=== PATIENT | male | born 1990 | race Caucasian/White ===

== ENCOUNTER 2021-01-12 21:58 | Emergency (ER) | payer BC, OTHER ==
[~2021-01-12] VITALS: Ht 180.3 cm; Wt 116.8 kg
[2021-01-12] MEDS ORDERED: KETOROLAC 30 MG/ML VIAL IVP STA (22:23)
--- NOTE | 2021-01-12 22:29 | ED General ---
General Chief Complaint: General Problems/Pain Stated Complaint: RT SIDE PAIN Source of Information: Patient History of Present Illness Date Seen by Provider: Jan 12, 2021 Time Seen by Provider: 22:04 Initial Comments 30 yo male presenting with complaint of pain to right chest, right flank. This started 2 days ago and came on without any injury. He states he was just standing talking to a friend and had sudden onset of pain. The pain is worse with movement and deep breath. 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 He has been on Eliquis and has a Trego filter placed. He was worried with the pain persisting that he might have a blood clot to his lungs or kidney as they had warned them that he could have those clots from leg go to other organs. Timing/Duration: 1-2 Days Severity: Severe Modifying Factors: worse with Movement Associated Systoms: Chest Pain (pleuritic right sided); No Cough, No Diaphoresis, No Fever/Chills, No Headaches, No Loss of Appetite, No Malaise, No Nausea/Vomiting, No Seizure, No Shortness of Air, No Syncope, No Weakness Allergies and Home Medications Allergies Coded Allergies: No Known Drug Allergies (Unverified , 01/12/21) Patient Home Medication List Home Medication List Reviewed: Yes Oxycodone HCl/Acetaminophen (Oxycodone-Acetaminophen 5-325) 1 Each Tablet, 1 EACH PO Q6H PRN for PAIN-SEVERE (8-10) Prescribed by: HAYLEE JERONIMO on 01/12/21 3845 Review of Systems Review of Systems Constitutional: No chills, No fever EENTM: no symptoms reported Respiratory: see HPI; No cough, No short of breath Cardiovascular: see HPI Gastrointestinal: other (right flank pain) Genitourinary: No dysuria, No hematuria Musculoskeletal: back pain (right flank and back pain as well as posterior lower right chest tender to palpation) Skin: no symptoms reported Psychiatric/Neurological: Denies Numbness, Denies Paresthesia Hematologic/Lymphatic: Blood Clots (DVT in leg so on Eliquis and has Trego filter) Past Gmlmuzn-Oztzsi-Hxokeo Hx Past Medical History Surgeries: Yes Orthopedic Respiratory: No Cardiac: Yes Deep Vein Thrombosis Neurological: No Genitourinary: No Gastrointestinal: No Musculoskeletal: Yes Fractures HEENT: No Psychosocial: No Physical Exam Vital Signs Vital Signs - First Documented 01/12/21 22:10 Temp 36.6 Pulse 115 Resp 16 B/P (MAP) 144/108 (120) Pulse Ox 95 O2 Delivery Room Air Capillary Refill : Height, Weight, BMI Height: '" Weight: lbs. oz. kg; BMI Method: General Appearance: No Apparent Distress, WD/WN HEENT: PERRL/EOMI, Pharynx Normal Neck: Full Range of Motion, Non Tender, Supple Respiratory: Lungs Clear, Normal Breath Sounds, No Accessory Muscle Use, No Respiratory Distress; No Decreased Breath Sounds, No Rales, No Rhonci, No Stridor, No Wheezing; Other (tender to palpation of right lower posterior ribs/chest. no crepitus) Cardiovascular: Normal Peripheral Pulses, Tachycardia Gastrointestinal: Normal Bowel Sounds, No Pulsatile Mass, Non Tender, Soft Rectal: Deferred Back: CVA Tenderness (R), Other (pain to right CVA and flank) Extremity: Normal Capillary Refill Neurologic/Psychiatric: Alert, Oriented x3 Skin: Warm/Dry Progress/Results/Core Measures Suspected Sepsis SIRS Temperature: Pulse: Respiratory Rate: Laboratory Tests 01/12/21 22:39: White Blood Count 10.4 Blood Pressure / Mean: Laboratory Tests 01/12/21 22:39: Creatinine 0.65, INR Comment 1.0, Platelet Count 325, Total Bilirubin 0.3 Results/Orders Lab Results Laboratory Tests Test 01/12/21 22:25 01/12/21 22:39 Range/Units Urine Color STRAW Urine Clarity CLEAR Urine pH 6.0 5-9 Urine Specific [place] <=1.005 1.016-1.022 Urine Protein NEGATIVE NEGATIVE Urine Glucose (UA) NEGATIVE NEGATIVE Urine Ketones NEGATIVE NEGATIVE Urine Nitrite NEGATIVE NEGATIVE Urine Bilirubin NEGATIVE NEGATIVE Urine Urobilinogen 0.2 < = 1.0 MG/DL Urine Leukocyte Esterase NEGATIVE NEGATIVE Urine RBC (Auto) NEGATIVE NEGATIVE Urine RBC NONE /HPF Urine WBC NONE /HPF Urine Crystals NONE /LPF Urine Bacteria NEGATIVE /HPF Urine Casts NONE /LPF Urine Mucus NEGATIVE /LPF Urine Culture Indicated NO White Blood Count 10.4 4.3-11.0 10^3/uL Red Blood Count 5.10 4.30-5.52 10^6/uL Hemoglobin 15.4 13.3-17.7 g/dL Hematocrit 43 40-54 % Mean Corpuscular Volume 85 80-99 fL Mean Corpuscular Hemoglobin 30 25-34 pg Mean Corpuscular Hemoglobin Concent 36 32-36 g/dL Red Cell Distribution Width 12.3 10.0-14.5 % Platelet Count 325 130-400 10^3/uL Mean Platelet Volume 9.5 9.0-12.2 fL Immature Granulocyte % (Auto) 0 % Neutrophils (%) (Auto) 58 42-75 % Lymphocytes (%) (Auto) 31 12-44 % Monocytes (%) (Auto) 8 0-12 % Eosinophils (%) (Auto) 2 0-10 % Basophils (%) (Auto) 0 0-10 % Neutrophils # (Auto) 6.0 1.8-7.8 X 10^3 Lymphocytes # (Auto) 3.2 1.0-4.0 X 10^3 Monocytes # (Auto) 0.8 0.0-1.0 X 10^3 Eosinophils # (Auto) 0.2 0.0-0.3 10^3/uL Basophils # (Auto) 0.0 0.0-0.1 10^3/uL Immature Granulocyte # (Auto) 0.0 0.0-0.1 10^3/uL Prothrombin Time 13.2 12.2-14.7 SEC INR Comment 1.0 0.8-1.4 Activated Partial Thromboplast Time 27 24-35 SEC Sodium Level 139 135-145 MMOL/L Potassium Level 4.2 3.6-5.0 MMOL/L Chloride Level 104 98-107 MMOL/L Carbon Dioxide Level 23 21-32 MMOL/L Anion Gap 12 5-14 MMOL/L Blood Urea Nitrogen 11 7-18 MG/DL Creatinine 0.65 0.60-1.30 MG/DL Estimat Glomerular Filtration Rate 144 BUN/Creatinine Ratio 17 Glucose Level 110 H 70-105 MG/DL Calcium Level 9.7 8.5-10.1 MG/DL Corrected Calcium 8.5-10.1 MG/DL Magnesium Level 2.2 1.6-2.4 MG/DL Total Bilirubin 0.3 0.1-1.0 MG/DL Aspartate Amino Transf (AST/SGOT) 34 5-34 U/L Alanine Aminotransferase (ALT/SGPT) 30 0-55 U/L Alkaline Phosphatase 93 40-136 U/L Total Protein 8.0 6.4-8.2 GM/DL Albumin 4.6 H 3.2-4.5 GM/DL My Orders Orders - HAYLEE JERONIMO MD Cbc With Automated Diff (01/12/21:) Magnesium (01/12/21:) Comprehensive Metabolic Panel (01/12/21 22:21) Protime With Inr (01/12/21:) Partial Thromboplastin Time (01/12/21 22:) Ed Iv/Invasive Line Start (01/12/21:) Ua Culture If Indicated (01/12/21:) Ct Angio Chest/Abd/Pelv W (01/12/21 22:23) Ketorolac Injection (Toradol Injection) (01/12/21:23) Iohexol Injection (Omnipaque 350 Mg/Ml 1 (01/12/21 22:30) Received Contrast (Hold Metformin- Contr (01/12/21 22:30) Ns (Ivpb) (Sodium Chloride 0.9% Ivpb Bag (01/12/21 22:30) Rx-Oxycodone/Apap 5-325 Mg (Rx-Percocet (01/12/21 23:30) Medications Given in ED Current Medications Medications Dose Ordered Sig/Caro Route Start Time Stop Time Status Last Admin Dose Admin Iohexol 125 ml ONCE ONCE IV 01/12/21 22:30 01/12/21 22:31 DC 01/12/21 22:42 125 ML Sodium Chloride 100 ml ONCE ONCE IV 01/12/21 22:30 01/12/21 22:31 DC 01/12/21 22:42 100 ML Vital Signs/I&O 01/12/21 22:10 Temp 36.6 Pulse 115 Resp 16 B/P (MAP) 144/108 (120) Pulse Ox 95 O2 Delivery Room Air Capillary Refill : Progress Note #1: Progress Note Will check labs and CT angiogram of chest/abdomen/pelvis to evaluate for blood clots to lungs or organs. Doubtful this would be present with him taking Eliquis and having Trego filter but will check to see if might be present. Will also evaluate for aortic dissection, diverticulitis, kidney stone, colitis, rib fractures. Try a dose of Toradol for pain and inflammation. Progress Note #2: Progress Note Labs all stable without acute significant abnormality to account for his symptoms. UA clear of blood or infection. CT angiogram of chest/abdomen/pelvis read out as no acute arterial abnormality and no ischemic changes to organs. Filter in place in IVC. No acute pathology seen to account for his pain and symptoms. Can try continuation of muscle relaxer, steroid and a pain medicine. Have him recheck with pcp at his appt on Friday as scheduled. When reviewed with pt he stated he had plenty of muscle relaxer, did not want the steroid, reluctantly agreed to take some of the Percocet to help with pain until he sees clinic Friday Diagnostic Imaging Diagonstic Imaging: CT (angiogram) Plain Films/CT/US/NM/MRI: chest, abdomen, pelvis Comments NAME: ROYER GUERRA [facility] REC#: [id number] PT STATUS: REG ER : 1990 PHYSICIAN: HAYLEE JERONIMO MD ADMIT DATE: 01/12/21/ER FS Draft Date of Exam:01/12/21 CT ANGIO CHEST/ABD/PELV W PROCEDURE: CT angiography of the chest with contrast and CT abdomen and pelvis with contrast. TECHNIQUE: Multiple contiguous axial images were obtained through the chest, abdomen and pelvis after administration of intravenous contrast. 3D MIP reconstructed CT angiography acquisitions of the aorta were then performed. Auto Exposure Controls were utilized during the CT exam to meet ALARA standards for radiation dose reduction. INDICATION: Right-sided pain, history of thrombus. CHEST: Thoracic aorta patent and nonaneurysmal and nonacute. No mural hemorrhage, dissection or rupture. The pulmonary arterial branches widely patent. No filling defect. No PE. There is no pleural or pericardial effusion. There is no thoracic lymphadenopathy. No pulmonary consolidation or evidence for edema/pneumonia. No lung mass or lymphadenopathy. No chest wall lesion. Abdomen and pelvis: The aortoiliac vessels patent and nonaneurysmal and nonacute. No significant plaque, dissection, stenosis or occlusion. The celiac, the superior mesenteric and inferior mesenteric arteries as well as those vessels primary branches are all patent. No thrombus identified. The aortic bifurcation patent. Common, internal and external iliac segments as well as the common femorals and proximal superficial femorals appeared unremarkable. There were no findings of end organ ischemia. The renal arteries patent bilaterally. There is an IVC filter in place. There is fatty infiltration of the liver with no bile duct dilatation. The gallbladder normal. The pancreas negative. The spleen and adrenals unremarkable. There is no mesenteric or retroperitoneal adenopathy. The appendix normal. There is stool in the rectosigmoid colon without sharda impaction or obstruction. No perienteric or pericolonic edema. No segmental bowel wall thickening. No focal inflammatory changes. IMPRESSION: No acute arterial pathology within the chest, abdomen or pelvis. CHEST: Negative Abdomen and pelvis: Mild fatty liver, indwelling IVC filter. No thrombus, end-organ ischemia, obstructive phenomena or acute abnormalities. Dictated on workstation # [id number] Dict: 01/12/21 2304 Trans: 01/12/21 2312 [facility] [id number] Interpreted by: ROBERT MCELROY Electronically signed by: Reviewed: Reviewed by Me Departure Impression Primary Impression: Pleuritic chest pain Additional Impression: Right flank pain Disposition: HOME, SELF-CARE Condition: Stable Departure-Patient Inst. Decision time for Depature: 23:26 Referrals: AMIE FELIX APRN (PCP/Family) Primary Care Physician Patient Instructions: Flank Pain ED, Pleuritic Chest Pain ED Add. Discharge Instructions: No sign of infection or blood clots on your scans tonight of chest abdomen and pelvis. Try treating for muscle pain and spasm with continued muscle relaxer, alternate ice and heat to the area, and for severe pain the Oxycodone/Acetaminophen. Follow up with clinic on Friday as scheduled All discharge instructions reviewed with patient and/or family. Voiced understanding. Scripts Oxycodone HCl/Acetaminophen (Oxycodone-Acetaminophen 5-325) 1 Each Tablet 1 EACH PO Q6H PRN for PAIN-SEVERE (8-10) MDD 6 for 5 Days, #20 TAB 0 Refills Prov: HAYLEE JERONIMO MD 01/12/21 HAYLEE JERONIMO MD Jan 12, 2021 22:29
[2021-01-12] MEDS ORDERED: HOLD METFORMIN - RECEIVED CONTRAST 20 ML VIAL IV SCH (22:30)
[2021-01-12] MEDS ORDERED: NS 100 ML (IVPB) BAG IV ONE (22:30)
[2021-01-12] MEDS ORDERED: IOHEXOL 350 MG/ML 150 ML (OMNIPAQUE 350) VIAL IV ONE (22:30)
[2021-01-12 22:34] LABS: BACTERIA,URINE NEGATIVE /HPF; BILIRUBIN,URINE NEGATIVE (NEGATIVE); CLARITY,URINE CLEAR; COLOR,URINE STRAW; GLUCOSE, URINE (UA) NEGATIVE (NEGATIVE); KETONES,URINE NEGATIVE (NEGATIVE); LEUKOCYTE ESTERASE ,URINE NEGATIVE (NEGATIVE); NITRITE,URINE NEGATIVE (NEGATIVE); PROTEIN,URINE NEGATIVE (NEGATIVE)
[2021-01-12 22:47] LABS: BASOPHILS % (AUTO) 0 % (0-10); EOSINOPHILS % (AUTO) 2 % (0-10); HEMATOCRIT 43 % (40-54); HEMOGLOBIN 15.4 g/dL (13.3-17.7); LYMPHOCYTES % (AUTO) 31 % (12-44); MEAN CORPUSCULAR HEMOGLOBIN 30 pg (25-34); MEAN CORPUSCULAR HGB CONC 36 g/dL (32-36); MEAN CORPUSCULAR VOLUME 85 fL (80-99); MEAN PLATELET VOLUME 9.5 fL (9.0-12.2); MONOCYTES % (AUTO) 8 % (0-12); NEUTROPHILS % (AUTO) 58 % (42-75); PLATELET COUNT 325 10^3/uL (130-400); WHITE BLOOD COUNT 10.4 10^3/uL (4.3-11.0)
[2021-01-12 22:48] LABS: EOSINOPHILS # (AUTO) 0.2 10^3/uL (0.0-0.3); LYMPHOCYTES # (AUTO) 3.2 X 10^3 (1.0-4.0); MONOCYTES # (AUTO) 0.8 X 10^3 (0.0-1.0)
[2021-01-12 22:59] LABS: PROTHROMBIN TIME PATIENT 13.2 SEC (12.2-14.7)
[2021-01-12 23:04] LABS: ALANINE AMINOTRANSFERASE 30 U/L (0-55); ALBUMIN 4.6 GM/DL (3.2-4.5); ALKALINE PHOSPHATASE 93 U/L (40-136); BILIRUBIN,TOTAL 0.3 MG/DL (0.1-1.0); BUN/CREATININE RATIO 17; CALCIUM 9.7 MG/DL (8.5-10.1); CARBON DIOXIDE 23 MMOL/L (21-32); CHLORIDE 104 MMOL/L (98-107); CREATININE SERUM 0.65 MG/DL (0.60-1.30); GFR ESTIMATED 144; GLUCOSE 110 MG/DL (70-105); MAGNESIUM 2.2 MG/DL (1.6-2.4); POTASSIUM 4.2 MMOL/L (3.6-5.0); SODIUM 139 MMOL/L (135-145)
--- NOTE | 2021-01-12 23:14 | Diagnostic Imaging Report ---
PROCEDURE: CT angiography of the chest with contrast and CT abdomen and pelvis with contrast. TECHNIQUE: Multiple contiguous axial images were obtained through the chest, abdomen and pelvis after administration of intravenous contrast. 3D MIP reconstructed CT angiography acquisitions of the aorta were then performed. Auto Exposure Controls were utilized during the CT exam to meet ALARA standards for radiation dose reduction. INDICATION: Right-sided pain, history of thrombus. CHEST: Thoracic aorta patent and nonaneurysmal and nonacute. No mural hemorrhage, dissection or rupture. The pulmonary arterial branches widely patent. No filling defect. No PE. There is no pleural or pericardial effusion. There is no thoracic lymphadenopathy. No pulmonary consolidation or evidence for edema/pneumonia. No lung mass or lymphadenopathy. No chest wall lesion. Abdomen and pelvis: The aortoiliac vessels patent and nonaneurysmal and nonacute. No significant plaque, dissection, stenosis or occlusion. The celiac, the superior mesenteric and inferior mesenteric arteries as well as those vessels primary branches are all patent. No thrombus identified. The aortic bifurcation patent. Common, internal and external iliac segments as well as the common femorals and proximal superficial femorals appeared unremarkable. There were no findings of end organ ischemia. The renal arteries patent bilaterally. There is an IVC filter in place. There is fatty infiltration of the liver with no bile duct dilatation. The gallbladder normal. The pancreas negative. The spleen and adrenals unremarkable. There is no mesenteric or retroperitoneal adenopathy. The appendix normal. There is stool in the rectosigmoid colon without sharda impaction or obstruction. No perienteric or pericolonic edema. No segmental bowel wall thickening. No focal inflammatory changes. IMPRESSION: No acute arterial pathology within the chest, abdomen or pelvis. CHEST: Negative Abdomen and pelvis: Mild fatty liver, indwelling IVC filter. No thrombus, end-organ ischemia, obstructive phenomena or acute abnormalities. Dictated by: Dictated on workstation # [id number]
[2021-01-12] MEDS ORDERED: OXYC1TAB11 PO (23:27)
[2021-01-12] MEDS ORDERED: RX-OXYCODONE/APAP 5-325 MG #4 TAB PK PO PRN (23:30)
[2021-01-12 23:37] VITALS: BP 144/108
== END 2021-01-12 23:37 | disposition home or self-care (01) ==
LOC: ER FS 22:00
DX: R07.81 Pleurodynia (principal); R10.9 Unspecified abdominal pain; Z86.718 Personal history of other venous thrombosis and embolism; Z79.01 Long term (current) use of anticoagulants
CPT/HCPCS: 36415; 71275; 74174; 80053; 81000; 83735; 85025; 85610; 85730